=== PATIENT | male | born 1980 | race Caucasian/White ===

== ENCOUNTER 2017-08-15 08:55 | Emergency (ER) | payer OTHER ==
[2017-08-15 09:03] VITALS: TEMP 97.2
[2017-08-15] MEDS ORDERED: ONDANSETRON DISINTEGRATING 4 MG TAB PO ONE (09:16)
--- NOTE | 2017-08-15 09:28 | EDPHY ---
H & P Time Seen by Provider: 08/15/17 09:08 HPI/ROS: CHIEF COMPLAINT: "I have had a fever for 6 days " HISTORY OF PRESENT ILLNESS: 37-year-old immunocompetent male, generally healthy , complaining of fever for the past 6 days with resolving nonproductive cough and intermittent nausea with no abdominal pain. He was seen and the urgent care [facility] with today and referred to the ER for evaluation. He defervesces with acetaminophen. He has no complaints of pain or discomfort. He denies: Recent travel, known sick contacts, nuchal rigidity, headache, sore throat, abdominal pain, back or flank pain, urinary abnormality, rash, adenopathy, myalgia, arthralgia. REVIEW OF SYSTEMS: A ten point review of systems was performed and is negative with the exception of the items mentioned in the HPI PAST MEDICAL & SURGICAL HISTORY: No pertinent medical or surgical history SOCIAL HISTORY: nonsmoker PHYSICAL EXAM (Prior to examination, patient consented to physical exam, hands were washed and my usual and customary physical exam procedures followed) 1) GENERAL: Well-developed, well-nourished, alert and oriented. Appears to be in no acute distress. 2) HEAD: Normocephalic, atraumatic 3) HEENT: Pupils equal, round, reactive to light bilaterally. Sclera anicteric. Nasopharynx, oropharynx, clear, no lesions. No tonsillar enlargement tonsillar exudate no trismus or drooling. Ears bilaterally with normal tympanic membranes. No signs of otitis media or otitis externa. No otorrhea. 4) NECK: Full range of motion, no meningeal signs. No adenopathy 5) LUNGS: Clear auscultation bilaterally, no wheezes, no rhonchi, no retractions. 6) HEART: Regular rate and rhythm, no murmur, no heave, no gallop. 7) ABDOMEN: No guarding, no rebound, no focal tenderness, negative McBurney's, negative Mathis's, negative Rovsing's, negative peritoneal sign, I am unable to elicit any abdominal pain whatsoever on exam 8) MUSCULOSKELETAL: Moving all extremities, no focal areas of tenderness, no obvious trauma. No peripheral edema or discoloration. 9) BACK: No CVA tenderness, no midline vertebral tenderness, no fluctuance, no step-off, no obvious trauma, no visual or palpable abnormality. 10) SKIN: No rash, no petechiae. 11) Psychiatric: Patient is oriented X 3, there is no agitation. DIFFERENTIAL DIAGNOSIS: in no particular order including but not limited to influenza, viral URI, viral syndrome Smoking Status: Never smoked Constitutional: Initial Vital Signs Temperature (C) 36.2 C 08/15/17 08:59 Heart Rate 67 08/15/17 08:59 Respiratory Rate 18 08/15/17 08:59 Blood Pressure 130/82 H 08/15/17 08:59 O2 Sat (%) 98 08/15/17 08:59 O2 Delivery Mode Room Air Allergies/Adverse Reactions: No Known Allergies Allergy (Unverified 06/16/16 05:37) Home Medications: Medication Instructions Recorded Ondansetron Odt [Zofran Odt] 4 mg PO Q4PRN PRN #7 tab 08/15/17 MDM/Departure - MDM Medications Given: Discontinued Medications Ondansetron HCl (Zofran Odt) 4 mg PO EDNOW ONE Stop: 08/15/17 09:17 Last Admin: 08/15/17 09:18 Dose: 4 mg ED Course/Re-evaluation: 10:30 a.m.: This patient has been re-evaluated with serial examinations. He was given oral Zofran and notes significant improvement in his nausea. I re- evaluated abdomen which remained soft no guarding no rebound no McBurney's point pain, negative Mathis's sign, I am unable to elicit any abdominal pain at all. This patient appears very well. His lungs are clear bilaterally, he is maintaining normal saturations, no signs of respiratory distress. I do not think that chest imaging is currently indicated. There was a note from the triage that he was experiencing abdominal pain however when I interview him he states that he has not been experiencing abdominal pain and he has no complaints of abdominal pain currently and I am unable to elicit any abdominal pain on exam. I think that acute surgical abdominal pathology, acute appendicitis, acute pancreatitis, acute cholecystitis, less than likely in this patient. He was complaining of nausea which is now resolved after oral Zofran. We discussed possibility of influenza. We discussed diagnostic testing. We discussed that because the symptoms have been occurring for 6 days and appear to be resolving, per the patient, I think that influenza testing is of limited utility at this point. I do not think that diagnostic studies are indicated. I think he can be discharged. Have informed him however that should he develop new or worsening symptoms needs to return to the ER immediately for re- evaluation. - Depart Disposition: Home, Routine, Self-Care Clinical Impression: Nausea Condition: Good Instructions: Acute Nausea and Vomiting (ED) Additional Instructions: Return to the emergency department if you develop abdominal pain, if you develop fevers, if you are unable to keep food or fluid down, or any other symptoms that concern you Adult Pain & Fever Control: We recommend Acetaminophen (Tylenol) and Ibuprofen (Motrin,Advil) for pain and fever control. When fever is high or pain severe, both drugs can be used at the same time, but at different intervals. Please note the time differences. Your dose is: Acetaminophen 650mg every 4 to 6 hours Ibuprofen 600mg every hours with food OR Note: do not take Acetaminophen with Hydrocodone (Vicodin, Lortab) or Oycodone (Percocet). These medications also contain Acetaminophen. No more than 3000mg of Acetaminophen should be taken in 24 hours (for an adult). Prescriptions: Ondansetron Odt [Zofran Odt] 4 mg PO Q4PRN PRN #7 tab PRN Reason: Nausea Referrals: Dyllan Rizo MD [Medical Doctor] - 2-3 days, call for appt.
[2017-08-15 11:01] VITALS: BP 118/73; PULSE 59; RESP 16; O2SAT 96
== END 2017-08-15 11:00 | disposition home or self-care (01) ==
DX: R11.0 Nausea (principal)